=== PATIENT | male | born 1945 | race African-American/Black ===

== ENCOUNTER 2025-06-07 14:57 | Outpatient (AMB) | payer OTHER, SELFPAY ==
--- OUTSIDE RECORDS SUMMARY | 2015-03-21 12:05 | XMS_ITS | Continuity of Care Document ---
Author Organization [facility] Address [address] [address] Phone Care Team Providers Care Ribbon Lapper Tender Name Role Phone Unavailable Unavailable Unavailable Advance Directives Directive Yes / No Effective Date File Name No Information Encounters Encounter Description Practice Location Reason(s) For Visit Diagnoses Date Provider [facility], [address] [address], [place], [place], [id number], [place] tel:[phone] [facility] No Information 2014 No Information Family History Family Member Type Diagnosis Age At Onset No Information Payers Payer name Insurance type Covered alliance party ID Authoriza tion(s) No Information Social History Type Description Quantity Date Captured Comments Sex Male Smoking Status No Information Chief Complaint And Reason For Visit No Information History Of Present Illness Encounter Date Complaint History Of Prese nt Illness No Information Instructions Date Instruction Additional Infor mation No Information Assessments Type Assessment Date No Information
--- NOTE | 2025-06-07 15:17 | A.OFFVIS_ITS ---
Intake Visit Reasons: 6m PD Allergies No Known Allergies Allergy (Verified 06/05/25 11:06) HPI Comments Details: 80 years old man with multifactorial dementia with alcohol use disorder and mild parkinsonism. Apparently he was recently in rehab and according to his daughter he was giving motor and more stiff. He was falling. Also he was complaining of dizziness. He was prescribed meclizine that apparently has helped. [facility] Medical History (Updated 06/07/25 @ 15:26 by Dre Pham MD) Multifactorial dementia Parkinsonism, secondary Review of Systems Const Details: Complain of dizziness and unsteadiness. Physical Exam Neuro Other: He is alert and awake with normal spontaneity of speech fluency comprehension and flat affect. Face is symmetrical. Visual bocanegra are full. Gaze is slightly widened. Deep tendon reflexes are trace to absent. Moderate rigidity is noted in arms or legs. He is in a wheelchair. Assessment & Plan Assessment & Plan (1) Parkinsonism: Code(s): G20.C - Parkinsonism, unspecified Category: Medical Qualifiers: Parkinsonism type: secondary Parkinsonism Secondary Parkinsonism type: unspecified secondary Qualified Code(s): G21.9 - Secondary parkinsonism, unspecified (2) Multifactorial dementia: Code(s): F03.90 - Unspecified dementia, unspecified severity, without behavioral disturbance, psychotic disturbance, mood disturbance, and anxiety Category: Medical Plan Impression: a: Multifactorial moderate to severe dementia resulting in cognitive and physical disability b: parkinsonism, mild to mod c: Dizzienss, apparently better with small dose of meclizine Rec: a: Carbidopa/levodopa 25/100 QID b: Meclizine 12.5mg one a day as needed c: MRI brain WO to find out exact nature and cause of his cerebral problem and to answer his daughters questions about his condition and prognosis. Orders: Orders MR head/brain wo con Today F03.90 - Unspecified dementia, unspecified severity, without behavioral disturbance, psychotic disturbance, mood disturbance, and anxiety, G21.9 - Secondary parkinsonism, unspecified Medications: New carbidopa-levodopa 25-100 mg (Sinemet) 1 tab PO QID 360 tabs 1RF meclizine 12.5 mg PO ONCE PRN 90 tabs 1RF dizziness Coding Level of Care Code Est Pt Level 4 (35234) Diagnoses Secondary parkinsonism, unspecified secondary Parkinsonism type G21.9 Parkinsonism type: secondary Parkinsonism Secondary Parkinsonism type: unspecified secondary Multifactorial dementia F03.90
--- OUTSIDE RECORDS SUMMARY | 2025-06-07 17:23 | XMS_ITS | Encounter Summary ---
Author Organization [facility] Address [address] [place] [address] Care Team Providers Care Gaming Cage Cashier Name Role Phone MaurilioFrancisca Primary Care Provider [phone] Reason for Visit * Reason Onset Date Comments Medicare Annual Wellness Visit Subsequent 2024 AWV DUE after 02/21/2025 Encounter Details Date Type Department Care Team (Late st Contact Info) Description 05/09/2025 Telephone Internal Medicine - [place] [address] [place] [phone] Ruma Menendez MA Social History Tobacco Use Types Packs/Day Years Used Date Smoking Tobacco: Never Smokeless Tobacco: Never Alcohol Use Standard Drinks/Week Comments Yes 0 (1 standard drink = 0.6 oz pur e alcohol) Housing Instability Answer Date Recorde d Are you worried that in the next 2 months you may not have stable housing? No 10/28/2024 Food Access & Nutrition Answer Date Rec orded Do you have access to a vari ety of food including fruits and vegetables? Yes 10/28/2024 Access to Healthcare Answer Date Record ed Within the last 3 months, ho w many times did you visit the emergency department for your medical care? 0 10/28/2024 Health Literacy Answer Date Recorded How often do you need to hav e someone help you when you read instructions, pamphlets, or other written material from your doctor or pharmacy? Sometimes 10/28/2024 Caregiver: How often do you need to have someone help you when you read instructions, pamphlets, or other written material from your doctor or pharmacy? Not on file 10/28/2024 Financial Risk Answer Date Recorded How hard is it for you to pa y for the very basics like food, housing, medical care, and air conditioning / heating? Somewhat hard 10/28/2024 Transportation Answer Date Recorded Has the lack of transportati on kept you from meetings, work, or from getting things needed for daily living? No Has the lack of transportati on kept you from medical appointments or from getting medications? No 10/28/2024 Social Isolation Answer Date Recorded How often do you feel lonely or isolated from th ose around you? Rarely 10/28/2024 Food Risk Answer Date Recorded Within the past 12 months we worried whether our food would run out before we got money to buy more. Never true 10/28/2024 Within the past 12 months th e food we bought just didn't last and we didn't have money to get more. Never true 10/28/2024 Dependent Care Answer Date Recorded Do you need help finding or paying for care for your loved ones. For example, director child abuse therapy or elderly care for an older adult? No 10/28/2024 Education Answer Date Recorded Do you think completing more education or training, like finishing a GED, going to college, or learning a trade, would be helpful for you? No 10/28/2024 Employment and Income Answer Date Recor ded During the last four weeks, have you been actively looking for work? No 10/28/2024 Living Situation Answer Date Recorded What is your living situation? 0 10/28/2024 Sex and Gender Information Value Date Recorded Sex Assigned at Not on file Legal Sex Male 9:41 AM EST Gender Identity Male 08/24/2023 2:36 PM EST Sexual Orientation Straight 08/24/2023 2: 36 PM EST documented as of this encounter Progress Notes * Ruma Menendez MA - 05/18/2025 4:53 PM EDT Patients daughter, Delmy Butcher, returned my call @ 4:51 pm today. Delmy called to schedule an AWV appt for her father (pt) but then stated, Isn't Dr. Thorpe leaving? I said yes and transferred her to the call center to see if there is a provider available to take transfer pts. For now I can't schedule her father (pt) until we know who or if pt will be assigned to a new provider. Delmy also needs to cxl her father's (pt) 05/19/2025 @ 10:00 am with the call center bc pt has a conflict. Transfer to Ruma Menendez @ [id number]. Patient is on the April/2025 report. * Ruma Menendez MA - 05/09/2025 8:49 AM EDT Message left for patient to contact the Quality Department in reference to booking an Annual Wellness Visit appt w/[facility] after 02/21/2025. Transfer to Ruma Menendez @ [id number]. Patient is on the April/2025 report. documented in this encounter Plan of Treatment Upcoming Encounters Date Type Department Care Team (Late st Contact Info) Description 06/30/2025 10:00 AM EDT Office Visit Internal Medicine - [address] [phone] Sarah Saeed NP [address] [place] [address] 08/04/2025 9:45 AM EST Office Visit Orthopedics - [address] [phone] Getachew Napoles PA [address] [place] [phone] documented as of this encounter Visit Diagnoses Not on filedocumented in this encounter Additional Health Concerns Assessment Noted Time PHQ-9 Depression Total Score: 0 10/28/19 10:55 AM EST documented as of this encounter Care Teams Gaming Cage Cashier Relationship Specialty Start Date End Date Francisca Thorpe DO [address] [facility] [place] [address] PCP - General 06/16/24 documented as of this encounter
--- OUTSIDE RECORDS SUMMARY | 2025-06-07 17:23 | XMS_ITS | Encounter Summary ---
Author Organization [facility] Address [address] [place] [address] Care Team Providers Care Early Interventionist Name Role Phone Francisca Thorpe DO Primary Care Provider [phone] Reason for Visit * Reason Onset Date Comments Request For Order(s) 05/22/2025 Encounter Details Date Type Department Care Team (Late st Contact Info) Description 05/22/2025 Telephone Internal Medicine - [facility] [address] [place] [address] Francisca Thorpe DO [address] [place] [address] Social History Tobacco Use Types Packs/Day Years [...] care for your loved ones. For example, school childcare attendant or elderly care for an older adult? [...] as of this encounter Progress Notes * Liset Enriquez - 05/22/2025 4:01 PM EDT Orders from [facility] placed in Francisca Jaloudi, DO bin. Please complete and fax back to [phone]. Thank you documented in this encounter Plan of Treatment Upcoming Encounters Date Type Department Care Team (Late st Contact Info) Description 06/30/2025 10:00 AM EDT Office Visit Internal Medicine - [address] [phone] Sarah Saeed NP [address] [place] [phone] 08/04/2025 9:45 AM EST Office Visit Orthopedics - [place] [address] [place] [phone] Getachew Napoles PA [address] [place] [phone] documented as of this encounter Visit Diagnoses Not on filedocumented in this encounter Additional Health Concerns Assessment Noted Time PHQ-9 Depression Total Score: 0 10/28/19 25 10:55 AM EST documented as of this encounter Care Teams Early Interventionist Relationship Specialty Start Date End Date Francisca Thorpe DO [address] [place] [phone] PCP - General 06/16/24 documented as of this encounter
--- OUTSIDE RECORDS SUMMARY | 2025-06-07 17:23 | XMS_ITS | Encounter Summary ---
Author Organization [facility] Address [address] [place] [address] Care Team Providers Care Deckhand Sponge Boat Name Role Phone Francisca Thorpe DO Primary Care Provider [phone] Reason for Visit * Reason Onset Date Comments Fitting for DME 06/06/2025 Encounter Details Date Type Department Care Team (Late st Contact Info) Description 06/06/2025 Telephone Internal Medicine - [facility] [address] [place] [address] Francisca Thorpe DO [address] [place] [address] Social History Tobacco Use Types Packs/Day Years [...] for your loved ones. For example, director maternal child or elderly care for an older adult? [...] as of this encounter Progress Notes * Evette Dolan MA - 06/06/2025 4:43 PM EDT Durable medical equipment prescription request has been faxed to the [employer] : Beata / Wheelchair cushion With cover sheet, demographics and vik notes Confirmation was received * Enedina Lemon - 06/06/2025 2:32 PM EDT DME REQUEST Name of Product: 16 inch wheelchair cushion Specific information about product n/a # Needed 1 Reason patient is asking for this supply? Pt needs it for his wheelchair Have you received this supply before? If yes , when?: No Have you discussed the need for this supply with a provider at a recent visit? If yes, with who andwhen? No When completed: send to [facility] Who is requested? Angie from [employer] Is this a fax request? no Have you told the patient it will take 7-10 days for completion of this request? Yes documented in this encounter Plan of Treatment Upcoming Encounters Date Type Department Care Team (Late st Contact Info) Description 06/30/2025 10:00 AM EDT Office Visit Internal Medicine - [address] [phone] Sarah Saeed NP [address] [place] [phone] 08/04/2025 9:45 AM EST Office Visit Orthopedics - [place] [address] Getachew Napoles PA [address] [place] [phone] documented as of this encounter Visit Diagnoses Diagnosis Traumatic brain injury with loss of consciousness, subsequent encounter- Primary Parkinson disease, symptomatic (CMS/HCC V24, CMS/HCC V28) Paralysis agitans Falls frequently Personal history of fall Diabetic polyneuropathy associated with other specified diabetes mellitus (CMS/HCC V24, CMS/HCC V28) Unstable gait Abnormality of gait At high risk for pressure injury of skin documented in this encounter Orders General Supply Count Last Ordered Date First Or dered Date CHAIR SAUNDRA DARYA 1 06/06/2025 documented in this encounter Additional Health Concerns Assessment Noted Time PHQ-9 Depression Total Score: 0 10/28/19 25 10:55 AM EST documented as of this encounter Care Teams Deckhand Sponge Boat Relationship Specialty Start Date End Date Francisca Thorpe DO [address] [place] [address] PCP - General 06/16/24 documented as of this encounter
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
--- OUTSIDE RECORDS SUMMARY | 2025-06-07 17:23 | XMS_ITS | Encounter Summary ---
Author Organization [facility] Address [address] [place] [address] Care Team Providers Care Nurse Infection Control Name Role Phone Francisca Thorpe DO Primary Care Provider [phone] Reason for Visit * Reason Onset Date Comments Fitting for DME 06/06/2025 Encounter Details Date Type Department Care Team (Late st Contact Info) Description 06/06/2025 Telephone Internal Medicine - [place] [place] [address] Francisca Thorpe DO [address] [place] [address] Social History Tobacco Use Types Packs/Day Years [...] for your loved ones. For example, children's attendant or elderly care for an older [...] Notes * Evette Dolan MA - 06/06/2025 4:53 PM EDT Durable medical equipment prescription request has been faxed to the [employer] : [employer]ata / Right knee brace With cover sheet, demographics and vik notes Confirmation was received * Eva Desir - 06/06/2025 1:54 PM EDT DME REQUEST Name of Product: right knee brace Specific information about product n/a # Needed 1 Reason patient is asking for this supply? Physical Therapist from [facility] for osteoarthritis Have you received this supply before? If yes , when?: No Have you discussed the need for this supply with a provider at a recent visit? If yes, with who andwhen? No When completed: send to [facility] Who is requested? Angie from [facility], Is this a fax request? no Have you told the patient it will take 7-10 days for completion of this request? Yes documented in this encounter Plan of Treatment Upcoming Encounters Date Type Department Care Team (Late st Contact Info) Description 06/30/2025 10:00 AM EDT Office Visit Internal Medicine - [address] [phone] Sarah Saeed NP [address] [place] [address] 08/04/2025 9:45 AM EST Office Visit Orthopedics - [place] [phone] Getachew Napoles PA [address] [place] [address] documented as of this encounter Visit Diagnoses Diagnosis Pain in joint involving pelvic region and thigh, unspecified laterality- Primary Osteoarthritis of multiple joints, unspecified osteoarthritis type Unstable gait Abnormality of gait Parkinson disease, symptomatic (CMS/HCC V24, CMS/HCC V28) Paralysis agitans Right knee pain, unspecified chronicity documented in this encounter Orders General Supply Count Last Ordered Date First Or dered Date KNEE BRACE 1 06/06/2025 documented in this encounter Additional Health Concerns Assessment Noted Time PHQ-9 Depression Total Score: 0 10/28/19 25 10:55 AM EST documented as of this encounter Care Teams Nurse Infection Control Relationship Specialty Start Date End Date Francisca Thorpe DO [address] [place] [address] PCP - General 06/16/24 documented as of this encounter
--- OUTSIDE RECORDS SUMMARY | 2025-06-07 17:23 | XMS_ITS | Encounter Summary ---
Author Organization [facility] Address [address] [place] [address] Care Team Providers Care Cane Cutter Name Role Phone Francisca Thorpe DO Primary Care Provider [phone] Reason for Visit * Reason Onset Date Comments Faxed Order 06/07/2025 [facility] re (Cert/POC 06/07-08/05) Encounter Details Date Type Department Care Team (Late st Contact Info) Description 06/07/2025 Telephone Internal Medicine - [address] [place] [address] Francisca Thorpe DO [address] [place] [address] Social History Tobacco Use Types Packs/Day Years [...] care for your loved ones. For example, child advocate or elderly care for an older adult? [...] as of this encounter Progress Notes * Naya Escobar - 06/07/2025 2:06 PM EDT Orders from [facility] placed in [facility] bin. Please complete and fax back to [phone]. Thank you documented in this encounter Plan of Treatment Upcoming Encounters Date Type Department Care Team (Late st Contact Info) Description 06/30/2025 10:00 AM EDT Office Visit Internal Medicine - [address] [phone] Sarah Saeed NP [address] [place] [phone] 08/04/2025 9:45 AM EST Office Visit Orthopedics - [place] [address] [place] [address] Getachew Napoles PA [address] [place] [address] documented as of this encounter Visit Diagnoses Not on filedocumented in this encounter Additional Health Concerns Assessment Noted Time PHQ-9 Depression Total Score: 0 10/28/19 25 10:55 AM EST documented as of this encounter Care Teams Cane Cutter Relationship Specialty Start Date End Date [facility] [address] [place] [id number] PCP - General 06/16/24 documented as of this encounter
--- OUTSIDE RECORDS SUMMARY | 2025-06-07 17:23 | XMS_ITS | Encounter Summary ---
Author Organization [facility] Address [address] [place] [address] Care Team Providers Care Art Installer Name Role Phone Francisca Thorpe DO Primary Care Provider [phone] Encounter Details Date Type Department Care Team (Late st Contact Info) Description 06/06/2025 Telephone Internal Medicine - [facility] [address] [place] [address] Francisca Thorpe DO [address] [place] [address] Social History Tobacco Use Types Packs/Day Years [...] Record ed Within the last 3 months, nancy napier many times did you visit the emergency [...] for your loved ones. For example, children's program coordinator or elderly care for an older adult? [...] as of this encounter Progress Notes * Guillermina Nunn RN - 06/06/2025 2:21 PM EDT Spoke with Angie ROSENTHAL requesting extension for PT and OT VO given * Eva Desir - 06/06/2025 1:52 PM EDT [facility] CALL Which [facility] office is calling? [facility] Full name of caller: Angie The caller is A Physical Therapist Is the caller at the patients home?: no Reason for call: need VO to extend PT and OT, Does caller need an urgent call back? yes Was CONTACT Telephone # obtained above?: yes Fax #: n/a documented in this encounter Plan of Treatment Upcoming Encounters Date Type Department Care Team (Late st Contact Info) Description 06/30/2025 10:00 AM EDT Office Visit Internal Medicine - [address] [address] Sarah Saeed NP [address] [place] [address] 08/04/2025 9:45 AM EST Office Visit Orthopedics - [address] [phone] Getachew Napoles PA [address] [place] [phone] documented as of this encounter Visit Diagnoses Not on filedocumented in this encounter Additional Health Concerns Assessment Noted Time PHQ-9 Depression Total Score: 0 10/28/19 25 10:55 AM EST documented as of this encounter Care Teams Art Installer Relationship Specialty Start Date End Date Francisca Thorpe DO [address] [place] [address] PCP - General 06/16/24 documented as of this encounter
== END 2025-06-07 15:31 | disposition home or self-care (01) ==
PROVIDERS: PCP Internal Medicine; Visit Provider Psychiatry & Neurology Neurology
DX: G21.9 Secondary parkinsonism, unspecified (principal); F03.90 Unspecified dementia, unspecified severity, without behavioral disturbance, psychotic disturbance, mood disturbance, and anxiety
CPT/HCPCS: 99214

== ENCOUNTER 2025-09-02 09:41 | Outpatient (REF) | payer OTHER, SELFPAY ==
--- NOTE | ~2025-09-02 | MR_ITS ---
EXAMINATION: MR BRAIN WITHOUT CONTRAST CLINICAL INFORMATION: Dimension. Parkinson's. Weakness and vertigo. COMPARISON: None available. TECHNIQUE: MRI of the brain was obtained using routine sequences without contrast. FINDINGS: There is no restricted diffusion seen to suspect any acute ischemic changes. There is no para magnetic artifact seen either to suspect acute or chronic hemorrhagic products. Normal flow-void signal seen in major cerebral vasculature. 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 The lateral ventricles are symmetrical in size and configuration but moderately enlarged. There is bilateral periventricular T2 FLAIR hyperintensity foci likely chronic small vessel ischemic changes. There is no associated edema. Visualized calvarial bone marrow signal and the scalp soft tissues are normal there is minimal mucoperiosteal thickening bilateral ethmoid sinuses. Rest of the paranasal sinuses and mastoid air cells are well-aerated. There is mild deviated nasal septum. Incidental finding of a disc osteophyte/bulge complex C3-4 disc level. The cervical-medullary junction is normal. MR/MR head/brain wo con IMPRESSION: No acute intracranial process seen. 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 Mild cerebral volume loss, age appropriate. Electronically signed by: Yang Altamirano MD 09/04/2025 07:48 AM EST
== END 2025-09-02 09:42 | disposition home or self-care (01) ==
LOC: HO.MRI 09:41
PROVIDERS: Visit Provider Psychiatry & Neurology Neurology
DX: F03.90 Unspecified dementia, unspecified severity, without behavioral disturbance, psychotic disturbance, mood disturbance, and anxiety (principal); G21.9 Secondary parkinsonism, unspecified
CPT/HCPCS: 70551

== ENCOUNTER → 2025-09-02 09:57 | Outpatient (BNV) | payer OTHER, SELFPAY | PROVIDERS: Visit Provider Radiology Diagnostic Radiology | DX: G31.89 Other specified degenerative diseases of nervous system (principal) | CPT/HCPCS: 70551 ==